=== PATIENT | female | born 1945 | race Caucasian/White ===

== ENCOUNTER → 2019-04-03 | Outpatient (CLI) | payer MEDICARE, OTHER ==
--- NOTE | 2019-04-03 14:56 | 2DMMODE ---
[place] [address] 2 D/M-MODE ECHOCARDIOGRAM Name: JEREMYARCELIA Room: [facility]#: [id number] Admission: 04/03/19 Attend Phys: Justin Britt DO Discharge: Date of : 45 Date of Service: 04/03/19 1456 Report #: [id number] THIS REPORT FOR: //name// APPROVED REPORT Study performed: 04/03/2019 12:59:44 EXAM: Comprehensive 2D, Doppler, and color-flow Echocardiogram Patient Location: Out-Patient BSA: 1.93 HR: 62 bpm BP: 145/78 mmHg Other Information Study Quality: Fair Indications Murmur 2D Dimensions IVSd: 11.87 (7-11mm) LVOT Diam: 20.08 (18-24mm) LVDd: 47.26 mm PWd: 10.92 (7-11mm) Ascending Ao: 30.31 (22-36mm) LVDs: 26.65 (25-40mm) Aortic Root: 27.92 mm Volumes Left Atrial Volume (Systole) LA ESV Index: 24.70 mL/m2 Aortic Valve AoV Peak Chucky.: 1.61 m/s AO Peak Gr.: 10.41 mmHg LVOT Max P.02 mmHg AO Mean Gr.: 5.72 mmHg LVOT Mean P.57 mmHg LVOT Max V: 0.87 m/s AO V2 VTI: 32.45 cm LVOT Mean V: 0.58 m/s BEN (VTI): 1.89 cm2 LVOT V1 VTI: 19.37 cm Mitral Valve E/A Ratio: 0.62 MV Decel. Time: 325.29 ms MV E Max Chucky.: 0.42 m/s MV PHT: 94.34 ms MVA (PHT): 2.33 cm2 [place] [address] 2 D/M-MODE ECHOCARDIOGRAM Name: JEREMYARCELIAY Room: [facility]#: [id number] Admission: 04/03/19 Attend Phys: Justin Britt DO Discharge: Date of : 45 Date of Service: 04/03/19 1456 Report #: [id number] TDI E/Lateral E': 5.25 E/Medial E': 6.00 Medial E' Chucky.: 0.07 m/s Lateral E' Chucky.: 0.08 m/s Pulmonary Valve PV Peak Chucky.: 1.10 m/s PV Peak Gr.: 4.84 mmHg Left Ventricle The left ventricle is normal size. There is normal LV segmental wall motion. There is normal left ventricular wall thickness. Left ventricular systolic function is normal. LVEF is >70%. Grade I - abnormal relaxation pattern. Right Ventricle The right ventricle is normal size. The right ventricular systolic function is normal. Atria The left atrium size is normal. The right atrium size is normal. Aortic Valve The aortic valve is normal in structure. Trace aortic regurgitation. There is no aortic valvular stenosis. Mitral Valve The mitral valve is normal in structure. There is no mitral valve regurgitation noted. No evidence of mitral valve stenosis. Tricuspid Valve The tricuspid valve is normal in structure. There is no tricuspid valve regurgitation noted. Pulmonic Valve The pulmonary valve is normal in structure. There is no pulmonic valvular regurgitation. Great Vessels The aortic root is normal in size. IVC is normal in size and collapses >50% with inspiration. Pericardium There is no pericard[place] [address] 2 D/M-MODE ECHOCARDIOGRAM Name: ARCELIA LUNA Room: [facility]#: [id number] Admission: 04/03/19 Attend Phys: Justin Britt DO Discharge: Date of : 45 Date of Service: 04/03/19 1456 Report #: [id number] <Conclusion> The left ventricle is normal size. There is normal left ventricular wall thickness. Left ventricular systolic function is normal. LVEF is >70%. Grade I - abnormal relaxation pattern. The aortic valve is normal in structure. IVC is normal in size and collapses >50% with inspiration. <ELECTRONICALLY SIGNED> By: Audie Storey MD, FACC 04/03/19 1456 55 55 Audie Storey MD, FACC /INF
== END ==
LOC: M.CRD 12:04
DX: R01.1 Cardiac murmur, unspecified (principal); Z88.8 Allergy status to other drugs, medicaments and biological substances

== ENCOUNTER → 2019-12-05 | Outpatient (CLI) | payer MEDICARE, OTHER | LOC: M.RAD 11-22 11:52 | PROVIDERS: ATTEND Family Medicine | DX: Z12.31 Encounter for screening mammogram for malignant neoplasm of breast (principal); Z78.0 Asymptomatic menopausal state; M85.88 Other specified disorders of bone density and structure, other site ==

== ENCOUNTER → 2020-01-02 | Outpatient (CLI) | payer MEDICARE, OTHER | LOC: M.RAD 12-06 09:09 | PROVIDERS: ATTEND Family Medicine | DX: N63.20 Unspecified lump in the left breast, unspecified quadrant (principal); R92.2 Inconclusive mammogram ==